=== PATIENT | female | born 1980 | race Caucasian/White ===

== ENCOUNTER → 2019-07-22 12:20 | Outpatient (CLI) | payer BC, SELFPAY | PROVIDERS: PCP Internal Medicine; Visit Provider Physician Assistant | DX: R30.0 Dysuria (principal) | CPT/HCPCS: 87077; 87086 ==

== ENCOUNTER → 2019-08-16 15:38 | Outpatient (CLI) | payer BC, SELFPAY ==
[2019-08-16 16:28] LABS: Add Manual Diff / Slide Review NO; Basophils Absolute Auto 0 /uL (0-100); Basophils Percent Auto 0.4 % (0-2); Eosinophils Absolute Auto 100 /uL (0-450); Eosinophils Percent Auto 0.6 % (2-4); Hematocrit 38.3 % (36-46); Hemoglobin 13.1 g/dL (12.0-16.0); Lymphocytes Absolute Auto 2200 /uL (1100-4500); Lymphocytes Percent Auto 20.7 % (25-40); Mean Corpuscular HGB Conc 34.2 % (30-36); Mean Corpuscular Hemoglobin 30.5 PG (26-34); Mean Corpuscular Volume 89.2 fL (80-100); Monocytes Absolute Auto 600 /uL (0-900); Monocytes Percent Auto 6.2 % (3-14); Neutrophils Absolute Auto 7600 /uL (1500-7000); Neutrophils Percent Auto 72.1 % (50-75); Platelet Count 361 X10^3/uL (150-400); Red Blood Cell Count 4.29 X10^6/uL (4.0-5.2); Red Cell Distribution Width 12.7 % (11.6-14.8); White Blood Cell Count 10.5 X10^3/uL (4.5-11.0)
[2019-08-16 16:36] LABS: Appearance Urine UA CLEAR; Bilirubin Urine UA NEGATIVE (NEGATIVE); Color Urine UA YELLOW; Glucose Urine UA NEGATIVE (Negative); Ketones Urine UA TRACE (NEGATIVE); Leukocyte Esterase Urine UA NEGATIVE (NEGATIVE); Nitrite Urine UA NEGATIVE (Negative); Occult Blood Urine UA 2+ (Negative); Protein Urine UA TRACE (Negative); Specific Gravity Urine UA 1.025 (1.000-1.035); Urobilinogen Urine UA 0.2 E.U./dL (0.2)
[2019-08-16 16:43] LABS: Amorphous Sediment Urine 1+; Bacteria Urine Moderate (10-30); Mucus Urine 2+ (Negative); RBC Urine 5-10/HPF (0-5/HPF); Squamous Epithelial Cell Urine 10-30 /HPF (0-5/HPF); WBC Urine 10-30/HPF (0-5/HPF)
[2019-08-16 17:37] LABS: Hepatitis B Surface Antigen NEGATIVE s/c (NEGATIVE); Rubella Antibody IgG 10.4 IU/mL (>15)
[2019-08-16 17:54] LABS: HIV 1 & 2 Ab/Ag 4th Gen Combo NEGATIVE (NEGATIVE); Hep C Virus Ab w/Reflex Quant NEGATIVE s/c (NEGATIVE)
[2019-08-16 18:15] LABS: Specimen Label KIT TEST
[2019-08-18 19:45] LABS: RPR Screen Nonreactive (Nonreactive)
== END ==
PROVIDERS: PCP Internal Medicine; Visit Provider Obstetrics & Gynecology
DX: O09.521 Supervision of elderly multigravida, first trimester (principal); Z34.81 Encounter for supervision of other normal pregnancy, first trimester
CPT/HCPCS: 36415; 80055; 81003; 81015; 86787; 86803; 86850; 86900; 86901; 87086; 87389

== ENCOUNTER → 2019-09-28 12:20 | Outpatient (CLI) | payer BC, SELFPAY ==
[2019-10-04 13:43] LABS: AFP, Serum 22.8 ng/mL; Calc Gestational Age 16.1; Est Date Determined by ULTRASOUND; Maternal Weight 135 lbs; Number of Fetuses 1; Prev Pregnancies Down Syndrome NO
== END ==
PROVIDERS: PCP Internal Medicine; Visit Provider Obstetrics & Gynecology
DX: Z34.92 Encounter for supervision of normal pregnancy, unspecified, second trimester (principal); Z3A.16 16 weeks gestation of pregnancy
CPT/HCPCS: 36415; 82105

== ENCOUNTER → 2019-10-29 14:26 | Outpatient (CLI) | payer BC, SELFPAY ==
--- NOTE | 2019-10-29 14:28 | DI.US.S_ITS ---
PROCEDURE: US OB >= 14 WEEKS FETUS INDICATIONS: 20 week anatomy scan OUTSIDE/PRIOR DATING DATA: Last menstrual period (LMP): 06/07/19. LMP-based estimated date of delivery (BRANDY): 03/13/20. First dating scan (date and location): 08/04/19. Estimated date of delivery (BRANDY) from first dating scan: 03/14/20. TECHNIQUE: Real-time scanning was performed of the fetus, with image documentation and biometric measurements. Endovaginal scanning: No COMPARISON: [facility], LILY, US OB < 14 WEEKS, 08/31/2019, 12:06. FINDINGS: General: A single living intrauterine gestation is present. Presentation: Breech Placenta: Placental position is posterior, without previa. Amniotic fluid index: 14.5 cm, normal range is 5-24 cm. heart rate: 149 beats per minute. Maternal cervical canal: 4.0 cm long. Normal lower limit is 2.5 cm. biometrics: Biparietal diameter: 20 weeks 4 days Head circumference: 20 weeks 4 days Abdominal circumference: 20 weeks 6 days Femur length: 20 weeks 2 days Estimated gestational age from initial scan: 20 weeks 3 days Composite gestational age from present scan: 20 weeks 4 days Estimated weight and percentile: 365 g; 55th percentile Measurement variability for biometric dating: +/- 7 days from 14 weeks to 15 weeks 6 days gestation, +/- 10 days from 16 weeks to 21 weeks 6 days gestation, +/- 2 weeks from 22 weeks to 27 weeks 6 days gestation, +/- 3 weeks for 28 weeks gestation or later. weight reference: 4500 g or EFW >90/95% is considered macrosomia or large for gestational age. EFW <10% is small for gestational age. EFW 5% or less is considered intra-uterine growth restriction. Anatomic survey: Neuro: Ventricles are non-dilated at less than 10 mm. Cisterna magna is normal at 3-11 mm. Cerebellum is normal in size and morphology. Nuchal skin fold: Normal at less than 6 mm between 14-21 weeks gestational age. Face: Nose and lips, facial profile are normal. Spine: No evidence for spina bifida. Heart: 4-chambered heart is present, with normal ventricular outflow tracts. Diaphragm: Diaphragm is intact. Stomach: Left-sided stomach is present. Kidneys: No hydronephrosis. Normal is less than 5 mm in 2nd trimester, less than 7 mm in 3rd trimester. Cord: 3-vessel cord has orthotopic insertion. Bladder: Normal in size. Extremities: All 4 extremities identified. IMPRESSION: 1. Single living IUP redemonstrated and interval growth is normal. 2. Normal anatomic survey. Dictated by: Jarred Parisi [facility] Interpreted: Yolis Campbell MD on 10/29/2019 at 15:25 Approved by: Yolis Campbell M.D. on 10/29/2019 at 17:35
== END ==
PROVIDERS: PCP Internal Medicine; Visit Provider Internal Medicine
DX: Z34.82 Encounter for supervision of other normal pregnancy, second trimester (principal); Z3A.20 20 weeks gestation of pregnancy
CPT/HCPCS: 76811

== ENCOUNTER → 2019-12-02 08:39 | Outpatient (CLI) | payer BC, SELFPAY ==
[2019-12-02 12:03] LABS: Hematocrit 35.6 % (36-46); Hemoglobin 12.1 g/dL (12.0-16.0)
[2019-12-02 12:35] LABS: GTT (PREG) 1 Hour PP 50gm Dose 71 mg/dL (76-139)
== END ==
PROVIDERS: PCP Internal Medicine; Referring Provider Specialist; Visit Provider Specialist
DX: Z34.82 Encounter for supervision of other normal pregnancy, second trimester (principal); Z3A.25 25 weeks gestation of pregnancy
CPT/HCPCS: 36415; 82950; 85014; 85018

== ENCOUNTER 2020-01-19 14:39 | Observation (INO) | payer BC, SELFPAY ==
--- NOTE | 2020-01-19 14:46 | DI.US.S_ITS ---
PROCEDURE: US OB LIMITED INDICATIONS: LEFT ABDOMINAL PAIN AT 32 WEEKS GESTATION OUTSIDE/PRIOR DATING DATA: Last menstrual period (LMP): 06/07/19 LMP-based estimated date of delivery (BRANDY): 03/13/20. First dating scan (date and location): 08/04/19. Estimated date of delivery (BRANDY) from first dating scan: 03/14/20. TECHNIQUE: Real-time scanning was performed of the fetus, with image documentation. Endovaginal scanning: Not performed COMPARISON: None. FINDINGS: A single living intrauterine gestation is present. Presentation: Vertex Placenta: Placental position is fundal, without previa. heart rate: 155 beats per minute. Maternal cervical canal: 6.3 cm long. Normal lower limit is 2.5 cm. Bilateral ovaries are visualized and are within normal limits. Examination of bilateral kidneys shows the right kidney measures 11.9 cm in length and left kidney measures 12.9 cm in length. Moderate left-sided hydronephrosis is seen. No gross obstructing renal calculus is seen. No right sided hydronephrosis. IMPRESSION: 1. Moderate left-sided hydronephrosis. No right hydronephrosis. 2. Single live intrauterine with fetus in vertex presentation. heart rate is 155 beats per minute. Normal appearing cervix. Dictated by: Prudencio Jackson M.D. on 01/19/2020 at 15:51 Approved by: Prudencio Jackson M.D. on 01/19/2020 at 15:54
[2020-01-19 14:58] LABS: Appearance Urine UA SL CLOUDY; Bilirubin Urine UA NEGATIVE (NEGATIVE); Color Urine UA YELLOW; Glucose Urine UA NEGATIVE (Negative); Ketones Urine UA TRACE (NEGATIVE); Leukocyte Esterase Urine UA TRACE (NEGATIVE); Nitrite Urine UA NEGATIVE (Negative); Occult Blood Urine UA 3+ (Negative); Protein Urine UA TRACE (Negative); Specific Gravity Urine UA 1.025 (1.000-1.035); Urobilinogen Urine UA 0.2 E.U./dL (0.2)
[2020-01-19 15:02] LABS: Add Manual Diff / Slide Review NO; Basophils Absolute Auto 100 /uL (0-100); Basophils Percent Auto 0.3 % (0-2); Eosinophils Absolute Auto 0 /uL (0-450); Eosinophils Percent Auto 0.1 % (2-4); Hematocrit 36.3 % (36-46); Hemoglobin 12.3 g/dL (12.0-16.0); Lymphocytes Absolute Auto 1300 /uL (1100-4500); Lymphocytes Percent Auto 7.7 % (25-40); Mean Corpuscular Hemoglobin 30.1 PG (26-34); Mean Corpuscular Volume 88.6 fL (80-100); Monocytes Absolute Auto 700 /uL (0-900); Monocytes Percent Auto 3.9 % (3-14); Neutrophils Absolute Auto 15400 /uL (1500-7000); Platelet Count 250 X10^3/uL (150-400); Red Cell Distribution Width 12.7 % (11.6-14.8); White Blood Cell Count 17.5 X10^3/uL (4.5-11.0)
[2020-01-19 15:09] LABS: Calcium Oxalate Crystals Urine Occasional; RBC Urine 30-100/HPF (0-5/HPF); Squamous Epithelial Cell Urine 1-5 /HPF (0-5/HPF); WBC Urine 10-30/HPF (0-5/HPF); pH Urine UA 5.5 (4.5-8.0)
[2020-01-19 15:10] LABS: Bacteria Urine Many (>30); Culture Indicated Urine Specimen Cultured; Mucus Urine 1+ (Negative)
[2020-01-19 15:13] LABS: Alanine Aminotransferase 9 IU/L (<35); Albumin 3.8 g/dL (3.5-5.0); Albumin Globulin Ratio 1.1 (1.0-2.8); Alkaline Phosphatase 112 U/L (38-126); Aspartate Aminotransferase 23 IU/L (14-36); BUN Creatinine Ratio 18.2 (6-22); Bilirubin Total 0.3 mg/dL (0.2-1.3); Bilirubin Unconjugated 0.3 mg/dL (0.0-1.1); Blood Urea Nitrogen 10 mg/dL (7-17); Calcium 9.1 mg/dL (8.4-10.2); Carbon Dioxide 24 mmol/L (22-32); Chloride 106 mmol/L (98-107); Estimated Glomerular Filt Rate > 60.0 mL/min (>60); Globulin 3.5 g/dL (1.7-4.1); Glucose 104 mg/dL (70-100); HEMOLYSIS < 15 (0-50); Potassium 3.6 mmol/L (3.4-5.1); Sodium 138 mmol/L (137-145); Total Protein 7.3 g/dL (6.3-8.2)
[2020-01-19] MEDS: CEFTRIAXONE 1 GM/50 ML FROZ.PIGGY IV (15:42)
[2020-01-19] MEDS: MORPHINE 2 MG/ML INJ IV (15:42)
[2020-01-19] MEDS: LACTATED RINGERS 1,000 ML 1000 ML IV (15:42)
[2020-01-19] MEDS: ONDANSETRON 4 MG/2 ML INJ IV (15:42)
[2020-01-19 16:06] LABS: Procalcitonin < 0.05 ng/mL (<0.5)
[2020-01-19] MEDS: ACETAMINOPHEN 325 MG TABLET 650 MG PO (16:26)
--- NOTE | 2020-01-19 17:20 | PM.OBTRLD ---
Visit Information Visit Information Date of evaluation: 01/19/20 Primary OB Provider: Pita Martin Reason for Evaluation: Yes other Comments/Additional reasons for admission: Severe left flank pain and nausea Vital Signs Vital Signs: Blood pressure 132/71, pulse of 85, temperature 98.1? 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 She started to have left-sided pain and then when she reached the cell phone lot started emesis. The pain was crampy but only on her left side and back. She denies any vaginal bleeding. ROS: Yes All systems reviewed with the patient and are negative except as otherwise documented Exam Narrative Exam Narrative: Patient was appearing quite uncomfortable. No pain in her abdomen. Minimal CVA tenderness. Objective Imaging US - abdomen: My impression: No evidence of abruption, left hydronephrosis Labs Result Diagrams: 01/19/20 14:54 01/19/20 14:54 Labs: Laboratory Results - last 24 hr 01/19/20 01/19/20 01/19/20 14:50 14:54 14:54 WBC 17.5 H RBC 4.10 Hgb 12.3 Hct 36.3 MCV 88.6 MCH 30.1 MCHC 34.0 RDW 12.7 Plt Count 250 Neut % (Auto) 88.0 H Lymph % (Auto) 7.7 L [place] % (Auto) 3.9 Eos % (Auto) 0.1 L Baso % (Auto) 0.3 Neut # (Auto) 15917 H Lymph # (Auto) 1300 [place] # (Auto) 700 Eos # (Auto) 0 Baso # (Auto) 100 Sodium 138 Potassium 3.6 Chloride 106 Carbon Dioxide 24 BUN 10 Creatinine 0.55 Estimated GFR > 60.0 BUN/Creatinine Ratio 18.2 Glucose 104 H Calcium 9.1 Total Bilirubin 0.3 Conjugated Bilirubin 0.0 Unconjugated Bilirubin 0.3 AST 23 ALT 9 Alkaline Phosphatase 112 Total Protein 7.3 Albumin 3.8 Globulin 3.5 Albumin/Globulin Ratio 1.1 Procalcitonin Urine Color Yellow Urine Appearance Sl cloudy Urine pH 5.5 Ur Specific Cross 1.025 Urine Protein Trace H Urine Glucose (UA) Negative Urine Ketones Trace H Urine Occult Blood 3+ H Urine Nitrate Negative Urine Bilirubin Negative Urine Urobilinogen 0.2 Ur Leukocyte Esterase Trace H Urine RBC 30-100/hpf H Urine WBC 10-30/hpf H Ur Squamous Epith Cells 1-5 /hpf D Calcium Oxalate Crystal Occasional H Urine Bacteria Many (>30) H Urine Mucus 1+ H Ur Culture Indicated? Specimen cultured 01/19/20 14:54 WBC RBC Hgb Hct MCV MCH MCHC RDW Plt Count Neut % (Auto) Lymph % (Auto) [place] % (Auto) Eos % (Auto) Baso % (Auto) Neut # (Auto) Lymph # (Auto) [place] # (Auto) Eos # (Auto) Baso # (Auto) Sodium Potassium Chloride Carbon Dioxide BUN Creatinine Estimated GFR BUN/Creatinine Ratio Glucose Calcium Total Bilirubin Conjugated Bilirubin Unconjugated Bilirubin AST ALT Alkaline Phosphatase Total Protein Albumin Globulin Albumin/Globulin Ratio Procalcitonin < 0.05 Urine Color Urine Appearance Urine pH Ur Specific Cross Urine Protein Urine Glucose (UA) Urine Ketones Urine Occult Blood Urine Nitrate Urine Bilirubin Urine Urobilinogen Ur Leukocyte Esterase Urine RBC Urine WBC Ur Squamous Epith Cells Calcium Oxalate Crystal Urine Bacteria Urine Mucus Ur Culture Indicated? Evaluation Evaluation Baseline heart rate: 130 monitor accelerations: Present monitor decelerations: Absent Contraction Frequency (minutes): 0 Category of Tracing: I Laboratory results: Laboratory Tests 01/19/20 01/19/20 01/19/20 14:50 14:54 14:54 WBC 17.5 H RBC 4.10 Hgb 12.3 Hct 36.3 MCV 88.6 MCH 30.1 MCHC 34.0 RDW 12.7 Plt Count 250 Neut % (Auto) 88.0 H Lymph % (Auto) 7.7 L [place] % (Auto) 3.9 Eos % (Auto) 0.1 L Baso % (Auto) 0.3 Neut # (Auto) 87745 H Lymph # (Auto) 1300 [place] # (Auto) 700 Eos # (Auto) 0 Baso # (Auto) 100 Sodium 138 Potassium 3.6 Chloride 106 Carbon Dioxide 24 BUN 10 Creatinine 0.55 Estimated GFR > 60.0 BUN/Creatinine Ratio 18.2 Glucose 104 H Calcium 9.1 Total Bilirubin 0.3 Conjugated Bilirubin 0.0 Unconjugated Bilirubin 0.3 AST 23 ALT 9 Alkaline Phosphatase 112 Total Protein 7.3 Albumin 3.8 Globulin 3.5 Albumin/Globulin Ratio 1.1 Procalcitonin Urine Color Yellow Urine Appearance Sl cloudy Urine pH 5.5 Ur Specific Cross 1.025 Urine Protein Trace H Urine Glucose (UA) Negative Urine Ketones Trace H Urine Occult Blood 3+ H Urine Nitrate Negative Urine Bilirubin Negative Urine Urobilinogen 0.2 Ur Leukocyte Esterase Trace H Urine RBC 30-100/hpf H Urine WBC 10-30/hpf H Ur Squamous Epith Cells 1-5 /hpf D Calcium Oxalate Crystal Occasional H Urine Bacteria Many (>30) H Urine Mucus 1+ H Ur Culture Indicated? Specimen cultured 01/19/20 14:54 WBC RBC Hgb Hct MCV MCH MCHC RDW Plt Count Neut % (Auto) Lymph % (Auto) [place] % (Auto) Eos % (Auto) Baso % (Auto) Neut # (Auto) Lymph # (Auto) [place] # (Auto) Eos # (Auto) Baso # (Auto) Sodium Potassium Chloride Carbon Dioxide BUN Creatinine Estimated GFR BUN/Creatinine Ratio Glucose Calcium Total Bilirubin Conjugated Bilirubin Unconjugated Bilirubin AST ALT Alkaline Phosphatase Total Protein Albumin Globulin Albumin/Globulin Ratio Procalcitonin < 0.05 Urine Color Urine Appearance Urine pH Ur Specific Cross Urine Protein Urine Glucose (UA) Urine Ketones Urine Occult Blood Urine Nitrate Urine Bilirubin Urine Urobilinogen Ur Leukocyte Esterase Urine RBC Urine WBC Ur Squamous Epith Cells Calcium Oxalate Crystal Urine Bacteria Urine Mucus Ur Culture Indicated? Diagnosis, Plan/Disposition Final Diagnosis (1) Hydronephrosis determined by ultrasound: Current Visit: Yes Status: Acute (2) Flank pain in patient: Current Visit: Yes Status: Acute Plan/Disposition Plan: Patient had significant improvement in her pain with IV fluids, significant improvement of her nausea. Patient has remained afebrile. Unclear if the patient's symptoms were from a kidney stone, hydronephrosis, pyelonephritis. Since the patient is afebrile and her pain and nausea has resolved will discharge the patient home and treat with antibiotics. She received 1 g of ceftriaxone IV, she will be started on Bactrim until culture returns. Patient is to call immediately if she has a fever, or the pain returns. OB Disposition: home
== END 2020-01-19 17:33 | disposition home or self-care (01) ==
PROVIDERS: Admitting Provider Specialist; PCP Internal Medicine; Referring Provider Specialist; Visit Provider Specialist
DX: O99.89 Other specified diseases and conditions complicating pregnancy, childbirth and the puerperium (principal); N13.30 Unspecified hydronephrosis; O09.523 Supervision of elderly multigravida, third trimester; Z3A.32 32 weeks gestation of pregnancy
CPT/HCPCS: 36415; 59025; 59050; 76815; 80053; 80076; 81001; 84145; 85025; 87077; 87086; 87147; 96360; G0378; G0379; J2270; J2405

== ENCOUNTER → 2020-02-14 12:00 | Outpatient (CLI) | payer BC, SELFPAY ==
[2020-02-15 09:41] LABS: Strep Grp B PCR POS for Grp B Strep
== END ==
PROVIDERS: PCP Internal Medicine; Visit Provider Specialist
DX: Z34.03 Encounter for supervision of normal first pregnancy, third trimester (principal)
CPT/HCPCS: 87653

== ENCOUNTER 2020-03-08 04:39 | Inpatient (IN) | payer BC, SELFPAY ==
[2020-03-08 06:41] LABS: Add Manual Diff / Slide Review NO; Basophils Absolute Auto 100 /uL (0-100); Basophils Percent Auto 0.5 % (0-2); Eosinophils Absolute Auto 100 /uL (0-450); Eosinophils Percent Auto 0.4 % (2-4); Hematocrit 37.7 % (36-46); Hemoglobin 12.8 g/dL (12.0-16.0); Lymphocytes Absolute Auto 2600 /uL (1100-4500); Lymphocytes Percent Auto 15.8 % (25-40); Mean Corpuscular HGB Conc 33.8 % (30-36); Mean Corpuscular Volume 88.7 fL (80-100); Monocytes Absolute Auto 1200 /uL (0-900); Neutrophils Absolute Auto 12600 /uL (1500-7000); Neutrophils Percent Auto 76.3 % (50-75); Platelet Count 226 X10^3/uL (150-400); Red Blood Cell Count 4.25 X10^6/uL (4.0-5.2); Red Cell Distribution Width 13.2 % (11.6-14.8); White Blood Cell Count 16.6 X10^3/uL (4.5-11.0)
[2020-03-08] MEDS: PENICILLIN G POTASSIUM 5,000,000 UNIT in DEXTROSE 5% IN WATER 250 ML IV (06:46)
[2020-03-08] MEDS: LACTATED RINGERS 1,000 ML 100 ML IV (06:46)
--- NOTE | 2020-03-08 07:50 | PM.AN.REGBLK ---
Regional Block Pre-procedure Procedure: Continuous Lumbar Epidural for L&D Attending OB provider: Pita Martin PMH/ROS narrative: term labor, no complications except mildly elevated BP recently, no Rx. Hx: No personal or family history of anesthesia problems. ASA Class: II Labs: Hct 37.7 % (36-46) 03/08/20 06:35 Plt Count 226 X10^3/uL (150-400) 03/08/20 06:35 Medications: Current Medications Generic Name Dose Route Start Last Admin Trade Name Freq PRN Reason Stop Dose Admin Calcium Carbonate 1,000 mg 03/08/20 06:11 Tums PO Q2HR PRN Dyspepsia Fentanyl 100 mcg 03/08/20 06:11 Sublimaze IV Q1H PRN Pain, Severe (7-10) Penicillin G Potassium 3,000,000 unit in 50 mls @ 100 mls/hr 03/08/20 10:00 Penicillin G Potassium IV Q4H FISH Lactated Ringer's 1,000 mls @ 100 mls/hr 03/08/20 06:15 03/08/20 06:46 Lactated Ringers IV 100 mls/hr CONT FISH Administration Naloxone HCl 0.2 mg 03/08/20 06:11 Narcan IV Q2MIN PRN Opiate Reversal Ondansetron HCl 4 mg 03/08/20 06:11 Zofran IV Q4HR PRN Nausea And Vomiting Allergies: Allergies Allergy/AdvReac Type Severity Reaction Status Date / Time No Known Drug Allergies Allergy Verified 02/14/20 12:04 Procedure Insertion date: 03/08/20 Insertion time: 07:12 Prep/Local: betadine x3 Interspace: L3-4 Patient position: sitting Needle: 18 gauge Hustead (CSE: 27g Pencan through Hustead, clear CSF, 1mL 0.25% bupiv spinal dose) Loss of resistance with: saline LEEANNE at (cm): 4 Catheter placed at SKIN (cm): 9 Catheter in SPACE (cm): 5 Insertion: No CSF, No Blood, No Paresthesia with insertion, No Paresthesia with injection and No Test dose reaction Initial Medications TEST DOSE time: 07:12 TEST DOSE: 1.5% lidocaine with epinephrine 1:200k (mL): 3 BOLUS DOSE time: 07:22 BOLUS DOSE (mL): 3 BOLUS DOSE med: 0.125% bupivacaine with fentanyl 10 mcg/mL (no fentanyl) Infusion INFUSION: 0.125% bupivacaine Initial rate (mL/hr): 7 Subsequent interventions: 827: 5mL 0.25% bupiv with 50mcg fentanyl, rate to 10. Approx 4cm per RN. Post-procedure Anesthesia time START: 07:02 Anesthesia time END: 11:44 Post-procedure Anesthesia Assessment: Yes CV function: HR/BP stable, Yes Resp function: RR/sat/airway adequate, Yes Post-op hydration adequate, Yes Pain control adequate, Yes Nausea & vomiting absent, Yes Mental status appropriate and No Anesthesia complications
--- NOTE | 2020-03-08 08:26 | PM.OBHP.1 ---
OB HPI Date/Time Date of admission: 03/08/20 Date Patient Seen: 03/08/20 Time Patient Seen: 06:45 History of Present Condition Chief complaint: Evaluation of Labor/Abd Pain, 32 weeks : 5 Para: 3 Estimated Date of Delivery: 03/13/20 Estimated Gestational Age (weeks): 39 Narrative: Guerline Mcwilliams is a 40 year old female admitted in active labor History of Present care: good care, initiated at week # (8), number of visits (11) and pounds weight gain (32) Dating criteria: LMP confirmed by 1st trimester US Ultrasounds: normal mid trimester US Obstetrical complications: none Medical complications: none Preadmission Labs Blood type: O (+) positive -: Antibody screen: negative, GBS status: positive, HBsAG: negative, HIV: negative and RPR/VDLR: negative -: Chlamydia screen: not detected and Gonorrhea screen: not detected -: Rubella: not immune and Varicella: immune HCAB: negative Cell-free DNA: Normal male with normal AFP 1 hr GTT: 71 Prior (ies) History: 07/14/2014 37.5 weeks 6 lb 14 oz male epidural vaginal deliver 02/10/2017 39 week 7 lb 11 oz male epidural vaginal delivery 09/27/2018 38 weeks 6 lb 11 oz male epidural vaginal delivery Evaluation Evaluation Baseline heart rate: 140 Variability: Moderate (11-25) monitor accelerations: Present monitor decelerations: Absent Contraction Frequency (minutes): 5 Uterine Contraction Intensity: Strong/Firm Category of Tracing: I Cervical dilation (cm): 2 Cervical effacement (%): 80 station: -3 Laboratory results: Laboratory Tests 03/08/20 03/08/20 06:35 06:35 WBC 16.6 H RBC 4.25 Hgb 12.8 Hct 37.7 MCV 88.7 MCH 30.0 MCHC 33.8 RDW 13.2 Plt Count 226 Neut % (Auto) 76.3 H Lymph % (Auto) 15.8 L [place] % (Auto) 7.0 Eos % (Auto) 0.4 L Baso % (Auto) 0.5 Neut # (Auto) 26833 H Lymph # (Auto) 2600 [place] # (Auto) 1200 H Eos # (Auto) 100 Baso # (Auto) 100 Blood Type O Positive Antibody Screen Negative Non-invasive Membranes Rupture Test: positive (Maybe false from blood) PFSH Social History marital status: number of children: 3 household members: spouse and children lives independently: No caregiver/support person: No pets and animals: No education level: college occupational status: employed current occupational exposures/hazards: No leisure activities: exercise Smoking Status: Never smoker Meds Home Medications and Allergies Home Medications Medication Instructions Recorded Confirmed Type docosahexaenoic acid 200 mg capsule mg PO 07/22/19 02/28/20 History Allergies Allergy/AdvReac Type Severity Reaction Status Date / Time No Known Drug Allergies Allergy Verified 02/14/20 12:04 Review of Systems Review of Systems Narrative: Patient denies headaches, scotomata, epigastric pain. Good movement. She does not believe she broke her bag of water. ROS: Yes All systems reviewed with the patient and are negative except as otherwise documented Exam Vital Signs (past 8 hours): Blood pressure 142/82, pulse 78, temperature 36.3? Narrative Exam Narrative: HEENT exam within normal limits. Lungs are clear to auscultation percussion. Heart is regular rate and rhythm no S3-S4 or murmurs. Abdomen is gravid and soft. Extremities without edema and nontender. Normal DTRs. Objective Labs Result Diagrams: 03/08/20 06:35 Labs: Laboratory Results - last 24 hr 03/08/20 03/08/20 06:35 06:35 WBC 16.6 H RBC 4.25 Hgb 12.8 Hct 37.7 MCV 88.7 MCH 30.0 MCHC 33.8 RDW 13.2 Plt Count 226 Neut % (Auto) 76.3 H Lymph % (Auto) 15.8 L [place] % (Auto) 7.0 Eos % (Auto) 0.4 L Baso % (Auto) 0.5 Neut # (Auto) 40151 H Lymph # (Auto) 2600 [place] # (Auto) 1200 H Eos # (Auto) 100 Baso # (Auto) 100 Blood Type O Positive Antibody Screen Negative Assessment and Plan Assessment and Plan Assessment and Plan narrative: 39 week gestation in active labor with positive group B strep culture. Patient will receive IV penicillin. She is requesting epidural for pain control.
[2020-03-08] MEDS: PENICILLIN G POTASSIUM 3,000,000 UNIT/50 ML FROZ.PIGGY 100 UNIT IV (09:59)
[2020-03-08 10:36] LABS: COVID19 -Nasal RAPID Negative (Negative)
[2020-03-08] MEDS: OXYTOCIN 10 UNIT/ML VIAL 20 UNIT (11:18)
--- NOTE | 2020-03-08 11:43 | PM.OBPRVD ---
Labor & Delivery Delivery date: 03/08/20 Intrapartal events: None Induction method: none Delivery monitor: external FHT and external uterine Route of delivery: L&D Laceration Description: Perineal - 1st Degree Delivery repair: chromic (3 0) Estimated blood loss (mL): 100 Anesthesia type: Epidural Narrative: Patient arrived on Labor and delivery in active labor. She received IV penicillin for positive group B strep culture. She received an epidural catheter for pain control. heart tones category 1 to category 2 throughout labor. She had a very fast 2nd stage of labor. The patient had a spontaneous vaginal delivery. The viable male infant was placed on maternal abdomen. After the cord stopped pulsating the cord was clamped, cut, and cord bloods obtained. The placenta delivered spontaneously, intact, with 3 vessels. Patient was given IM Pitocin. There were no cervical or vaginal tears. A first-degree perineal tear was repaired with 3 0 chromic suture in the usual 2 layer fashion. Both mother doing well. Baby 1: gender: Male Presentation: vertex position: Left Occiput Transverse Placenta delivery description: Spontaneous cord vessel description: 3 Vessels score (1 min): 8 score (5 min): 9 Plan for aftercare: Routine care
[2020-03-08 17:11] VITALS: BP 132/74
[2020-03-08] MEDS: IBUPROFEN 600 MG TABLET PO (23:35)
[2020-03-09 06:17] LABS: Hemoglobin 12.6 g/dL (12.0-16.0)
--- NOTE | 2020-03-09 07:39 | P.DS_ITS ---
Discharge Providers Provider Date of admission: 03/08/20 04:39 Discharge Date: 03/09/20 Primary care physician: BOWEN Cali Consults: 03/08/20 06:11 Consult to Anesthesiology Urgent Comment: Consulting Provider: Anesthesiologist Reason for consultation: Epidural Has provider been notified: No 03/09/20 11:40 Consult to Stage Director Routine Comment: Discharge provider: Pita Martin MD Summary Hospital Course Date Patient Seen: 03/09/20 Time Patient Seen: 07:40 Procedures: Epidural catheter, spontaneous vaginal delivery, repair of first- degree perineal tear Hospital Course: Patient arrived on Labor and delivery in active labor. She received an epidural catheter for pain control. She received IV penicillin for positive group B strep culture. She had a spontaneous vaginal delivery of a viable male . She had repair of a first-degree perineal laceration. She is urinating and ambulating well. Minimal pain. She is breast-feeding without difficulty. She had some mild headaches and slightly increased blood pressure but no other signs or symptoms of preeclampsia. Peripartum Data Delivery Method: Natural Vaginal Laceration description: Perineal - 1st Degree Procedures: IV penicillin for positive group B strep culture, epidural catheter, spontaneous vaginal delivery, repair of first-degree laceration complications: none [place] 1: Gender: Male Disposition of : home Discharge Diagnosis (1) Vaginal delivery: Status: Acute Time Spent with Patient Time attestation: Total time spent providing and/or coordinating discharge services: Objective Labs Result Diagrams: 03/09/20 06:10 Labs: Laboratory Results - last 24 hr 03/08/20 03/09/20 09:30 06:10 Hgb 12.6 Hct 37.0 COVID-19 PCR Negative Exam Vital Signs (past 8 hours): Blood pressure 143/89, pulse 71, temperature 98.4? Narrative Exam Narrative: Abdomen is soft, nontender. Uterus is firm, at U, nontender. Repair is intact. Mild lochia. Extremities without edema and nontender. Patient is Rh positive. Rubella is nonimmune so she will receive the rubella vaccine prior to discharge. She received the Tdap in the 3rd trimester Discharge Plan Discharge Plan Patient Disposition: Home Discharge orders & Medications Prescriptions: Continued DHA 200 mg capsule PO RF: 0 Follow up/Referrals: Pita Martin MD [Physician] - 1 Month Thao Hernandez ARNP [Primary Care Provider] - Diet/Activity/Treatments Diet: Regular Activity: Nothing in vagina for 4 weeks Skin/Wound/Dressing Care Report to your healthcare provider any signs of infection, such as:: chills, fever and increased pain Discharge Data Primary Care Provider: Thao Hernandez
[2020-03-09] MEDS: DOCUSATE 100 MG CAPSULE PO (09:17)
[2020-03-09 11:46] VITALS: BP 133/84; PULSE 84; RESP 16; TEMP 36.8
== END 2020-03-09 13:01 | disposition home or self-care (01) | DRG 807 ==
PROVIDERS: Admitting Provider Specialist; PCP Internal Medicine; Referring Provider Specialist; Visit Provider Specialist
DX: O99.824 Streptococcus B carrier state complicating childbirth (principal); Z37.0 Single live birth; Z3A.39 39 weeks gestation of pregnancy; O70.0 First degree perineal laceration during delivery; Z11.59 Encounter for screening for other viral diseases
CPT/HCPCS: 01967; 36415; 59050; 59400; 85014; 85018; 85025; 86850; 86900; 86901; 87635; G0379; J2540; J2590

== ENCOUNTER → 2020-07-20 13:43 | Outpatient (CLI) | payer BC, SELFPAY ==
[2020-07-20 14:24] LABS: Appearance Urine UA CLEAR; Bilirubin Urine UA NEGATIVE (NEGATIVE); Color Urine UA YELLOW; Glucose Urine UA NEGATIVE (Negative); Ketones Urine UA NEGATIVE (NEGATIVE); Leukocyte Esterase Urine UA TRACE (NEGATIVE); Nitrite Urine UA NEGATIVE (Negative); Occult Blood Urine UA 1+ (Negative); Protein Urine UA NEGATIVE (Negative); Urobilinogen Urine UA 0.2 E.U./dL (0.2)
[2020-07-20 14:35] LABS: pH Urine UA 6.5 (4.5-8.0)
[2020-07-20 14:36] LABS: Amorphous Sediment Urine 1+; RBC Urine 0-1/HPF (0-5/HPF); Squamous Epithelial Cell Urine 1-5 /HPF (0-5/HPF); WBC Urine 10-30/HPF (0-5/HPF)
[2020-07-20 14:37] LABS: Bacteria Urine Few (2-10); Culture Indicated Urine Specimen Cultured; Mucus Urine 1+ (Negative)
== END ==
PROVIDERS: PCP Internal Medicine; Referring Provider Specialist; Visit Provider Specialist
DX: R39.9 Unspecified symptoms and signs involving the genitourinary system (principal)
CPT/HCPCS: 81001; 87077; 87086; 87147

== ENCOUNTER → 2021-03-17 17:30 | Outpatient (CLI) | payer BC, SELFPAY | PROVIDERS: PCP Internal Medicine; Visit Provider Physician Assistant | DX: R35.0 Frequency of micturition (principal); R39.15 Urgency of urination | CPT/HCPCS: 87077; 87086; 87186 ==

== ENCOUNTER → 2021-07-10 11:04 | Outpatient (CLI) | payer BC, SELFPAY ==
--- NOTE | 2021-07-10 | DI.US.S_ITS ---
PROCEDURE: US RENAL COMPLETE INDICATIONS: ASYMPTOMATIC MICROSCOPIC HEMATURIA TECHNIQUE: Real-time scanning was performed of the kidneys and bladder, with image documentation. COMPARISON: None. FINDINGS: Kidneys: Kidneys are normal in size. Right kidney measures 11.2 cm long; left kidney measures 10.9 cm long. Right renal cortical thickness is 1 cm; left renal cortical thickness is 1.4 cm. Renal cortical echotexture is normal. No hydronephrosis. No suspicious solid mass lesions. Multiple echogenic nonshadowing foci can be seen throughout the renal parenchyma. Note is made of generalized increased vascularity of the right kidney. Bladder: Pre-void bladder volume is 27 mL. Post-void residual is 0 mL. Pre-void images demonstrate no intraluminal masses or stones. On pre-void images, neither of the ureteral jets are noted with color Doppler interrogation. (Of note, ureteral jets may not be detectable in up to 25% of cases due to insufficient differences in specific gravity between ureteral and bladder urine). Miscellaneous: No free pelvic fluid. IMPRESSION: Multiple echogenic foci can be seen throughout the renal parenchyma, which may be related to nonshadowing stones. The right kidney demonstrates increased vascularity. Please consider infection. For further evaluation of the patient's presenting history of hematuria, please consider a dedicated hematuria protocol CT without and with contrast (assuming that there is no contraindication). Dictated by: Madan De La Torre M.D. on 07/10/2021 at 12:09 Approved by: Madan De La Torre M.D. on 07/10/2021 at 12:10
== END ==
PROVIDERS: PCP Internal Medicine; Referring Provider Internal Medicine; Visit Provider Internal Medicine
DX: R31.21 Asymptomatic microscopic hematuria (principal)
CPT/HCPCS: 76770

== ENCOUNTER → 2021-07-13 08:11 | Outpatient (CLI) | payer BC, SELFPAY ==
--- NOTE | 2021-07-13 08:27 | DI.CT.S_ITS ---
PROCEDURE: CT ABDOMEN PELVIS WO/W CON INDICATIONS: Asymptomatic microscopic hematuria TECHNIQUE: Optional 5 mm thick noncontrast images acquired from the diaphragm to the symphysis pubis. After the administration of intravenous contrast, 5 mm thick images acquired from the diaphragm to the symphysis pubis after a 10-minute delay. 2 mm thick coronal and sagittal reformats were then performed of the kidneys and ureters. For radiation dose reduction, the following was used: automated exposure control, adjustment of mA and/or kV according to patient size. COMPARISON: [facility], , RENAL COMPLETE, 07/10/2021, 11:20. FINDINGS: Image quality: Excellent. Lung bases: Lung bases are clear. Heart size is normal. Urinary system: Noncontrast images demonstrate numerous, at least 10, small nonobstructing stones within each kidney with the largest stone measuring up to approximately 2-3 mm. No hydronephrosis or perinephric fat stranding. There is normal bilateral renal enhancement. Renal calyces appear normal in morphology and demonstrate no suspicious filling defects when filled with contrast. There is bilateral indistinct extension of contrast into the papillary regions peripheral to the calices compatible with papillary necrosis. Opacified portions of both ureters demonstrate normal caliber. Bladder wall thickness is normal. No calcified bladder stones. Other solid organs: Evaluation of the liver demonstrates no focal hepatic lesions. The gallbladder appears within normal limits without calcified gallstones. Biliary system is non-dilated. Pancreas enhances normally. No peripancreatic fat stranding or fluid collections. No pancreatic duct dilatation. The spleen is normal in size. No adrenal nodules. Peritoneum and bowel: Bowel loops demonstrate normal wall thickness and caliber. There is colonic diverticulosis without acute diverticulitis. No free fluid or air. Nodes and vessels: No retroperitoneal or mesenteric adenopathy by size criteria. Aorta and inferior vena cava are normal in size. Abdominal wall: No ventral hernias. Pelvis: No pathologic free pelvic fluid. No inguinal hernias or adenopathy. Bones: There is a sclerotic focus within the left iliac bone which is nonspecific but statistically likely represents a bone island. No vertebral body compression fractures. IMPRESSION: 1. Bilateral nephrolithiasis without evidence of obstructive uropathy. 2. 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 Recommend correlation clinically. Dictated by: Tc Browning M.D. on 07/13/2021 at 13:32 Approved by: Tc Browning M.D. on 07/13/2021 at 13:47
== END ==
PROVIDERS: PCP Internal Medicine; Referring Provider Internal Medicine; Visit Provider Internal Medicine
DX: R31.21 Asymptomatic microscopic hematuria (principal); N20.0 Calculus of kidney
CPT/HCPCS: 74178

== ENCOUNTER → 2022-09-30 09:43 | Outpatient (CLI) | payer BC, SELFPAY ==
--- NOTE | 2022-09-30 09:44 | DI.CT.S_ITS ---
PROCEDURE: CT ABDOMEN PELVIS WO/W CON INDICATIONS: Recurring urinary tract infection/microscopic hematuria TECHNIQUE: Optional 5 mm thick noncontrast images acquired from the diaphragm to the symphysis pubis. After the administration of intravenous contrast, 5 mm thick images acquired from the diaphragm to the symphysis pubis after a 10-minute delay. 2 mm thick coronal and sagittal reformats were then performed of the kidneys and ureters. For radiation dose reduction, the following was used: automated exposure control, adjustment of mA and/or kV according to patient size. COMPARISON: [facility], CT, CT ABDOMEN PELVIS WO/W CON, 07/13/2021, 8:18 FINDINGS: Image quality: Excellent. Lung bases: Lung bases are clear. Heart size is normal. Urinary system: Redemonstration of numerous tiny punctate nonobstructing renal stones identified in the bilateral kidneys numbering greater than 10 on each side. These measure approximately 1-2 mm in size. Both kidneys are normal in size, without hydronephrosis or perinephric fat stranding. There is normal bilateral renal enhancement. Renal calyces appear normal in morphology when filled with contrast. Additionally, previously described indistinct extension of contrast into the papular regions peripheral to the calices may represent papillary necrosis. Opacified portions of both ureters demonstrate normal caliber. Bladder wall thickness is normal. No calcified bladder stones. Other solid organs: Liver is normal in size and enhancement. Gallbladder is unremarkable . Biliary system is non dilated. Pancreas enhances normally. Spleen is normal in size and enhancement. No adrenal nodules. Peritoneum and bowel: Bowel loops demonstrate normal wall thickness and caliber. No free fluid or air. Nodes and vessels: No retroperitoneal or mesenteric adenopathy by size criteria. Aorta and inferior vena cava are normal in size. Abdominal wall: There is a fat-containing umbilical hernia without acute inflammation. Pelvis: No pathologic free pelvic fluid. No inguinal hernias or adenopathy. Bones: No suspicious bony lesions. No acute vertebral body compression fractures. Minimal grade 1 anterolisthesis of L5 on S1 secondary to bilateral L5 pars defects. IMPRESSION: 1. Bilateral nephrolithiasis without evidence for obstructive uropathy. 2. 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 Recommend clinical correlation. Dictated by: Tha Carranza M.D. on 09/30/2022 at 14:43 Approved by: Tha Carranza M.D. on 09/30/2022 at 14:54
== END ==
PROVIDERS: PCP Internal Medicine; Referring Provider Urology; Visit Provider Urology
DX: N39.0 Urinary tract infection, site not specified (principal); N20.0 Calculus of kidney; R31.29 Other microscopic hematuria; N13.30 Unspecified hydronephrosis; K42.9 Umbilical hernia without obstruction or gangrene
CPT/HCPCS: 74178; Q9967

== ENCOUNTER → 2023-10-21 09:29 | Outpatient (CLI) | payer BC, SELFPAY ==
--- NOTE | 2023-10-21 09:30 | DI.RAD.S_ITS ---
PROCEDURE: XR KUB INDICATIONS: Kidney stones TECHNIQUE: One view of the abdomen acquired. COMPARISON: None. FINDINGS: Surgical changes and devices: None. Bowel: Bowel gas pattern is normal. Soft tissues: No suspicious abdominal calcifications. Visualized solid organ contours appear normal in size. Punctate calcifications project over the lower pole of the left kidney. Bones: No suspicious bony lesions. IMPRESSION: Punctate calcifications project over the lower pole of the left kidney. Dictated by: Joseph Souza M.D. on 10/21/2023 at 11:21 Approved by: Joseph Souza M.D. on 10/21/2023 at 11:25
== END ==
PROVIDERS: PCP Internal Medicine; Referring Provider Urology; Visit Provider Urology
DX: N20.0 Calculus of kidney (principal)
CPT/HCPCS: 74018

== ENCOUNTER → 2024-04-26 10:23 | Outpatient (CLI) | payer BC, SELFPAY ==
--- NOTE | 2024-04-26 10:26 | DI.RAD.S_ITS ---
PROCEDURE: XR KUB INDICATIONS: Follow-up kidney stone TECHNIQUE: One view of the abdomen acquired. COMPARISON: [facility], CR, XR KUB, 10/21/2023, 9:43. FINDINGS: Surgical changes and devices: None. Bowel: Bowel gas pattern is normal. Soft tissues: Increased number of calcification again project over the left kidney. Visualized solid organ contours appear normal in size. Bones: No suspicious bony lesions. IMPRESSION: Interval increase number of calcifications projecting over the left kidney Dictated by: Saleem Bill M.D. on 04/26/2024 at 14:06 Approved by: Saleem Bill M.D. on 04/26/2024 at 15:00
== END ==
PROVIDERS: PCP Internal Medicine; Referring Provider Urology; Visit Provider Urology
DX: N28.89 Other specified disorders of kidney and ureter (principal); N20.0 Calculus of kidney; Z87.442 Personal history of urinary calculi
CPT/HCPCS: 74018

== ENCOUNTER → 2024-04-28 09:52 | Outpatient (CLI) | payer BC, SELFPAY | PROVIDERS: PCP Internal Medicine; Visit Provider Urology | DX: Z87.440 Personal history of urinary (tract) infections (principal) | CPT/HCPCS: 81002; 87086 ==

== ENCOUNTER → 2024-05-07 09:50 | Outpatient (CLI) | payer BC, SELFPAY ==
--- NOTE | 2024-05-07 09:51 | DI.CT.S_ITS ---
PROCEDURE: CT KIDNEY URETER BLADDER (KUB) INDICATIONS: FOLLOW UP KIDNEY STONES TECHNIQUE: Axial sections were acquired from the lung bases to the pubic symphysis. Coronal and sagittal reformats were performed. For radiation dose reduction, the following was used: automated exposure control, adjustment of mA and/or kV according to patient size. COMPARISON: [facility], CR, XR KUB, 04/26/2024, 10:26. FINDINGS: Image quality: Diagnostic. Lower Chest: No significant findings. URINARY: Right Kidney: Right kidney is normal in size. Several small renal calculi, 2 to mm in diameter, are present in the collecting system without obstruction. No mass lesions. Right Ureter: No hydroureter. No calculi in the course of the ureter. Left Kidney: The left kidney is normal in size. Multiple small renal calculi, 2-3 mm in size are present in the renal collecting system. No obstruction. No mass lesions. Left Ureter: No hydroureter. No calculi in the course of the ureter. Bladder: Normal wall thickness. No stones. ABDOMEN: Liver: No contour-deforming solid mass. Gallbladder: No radiopaque gallstones or wall thickening. Biliary ducts: No biliary dilation. Pancreas: No ductal dilation. Spleen: Size is within normal limits. Adrenal Glands: No adrenal nodules. Stomach and Bowel: Normal colonic caliber, without significant wall thickening. No bowel obstruction. No inflammatory changes. Peritoneum: No abnormal intraperitoneal fluid. No free air. Ventral Wall: No hernia. Abdominal Nodes: No enlarged retroperitoneal or mesenteric lymph nodes. Vessels: Aorta and inferior vena cava are normal in size. PELVIS: Pelvic Organs: Unremarkable. Pelvic Nodes: Unremarkable. Miscellaneous: No inguinal hernias are seen. Bones: Unremarkable. IMPRESSION: Bilateral non-obstructing renal calculi. Dictated by: Kiko Lyons M.D. on 05/07/2024 at 11:57 Approved by: Kiko Lyons M.D. on 05/07/2024 at 12:07
== END ==
PROVIDERS: PCP Internal Medicine; Referring Provider Urology; Visit Provider Urology
DX: N20.0 Calculus of kidney (principal)
CPT/HCPCS: 74176

== ENCOUNTER → 2024-11-09 10:58 | Outpatient (CLI) | payer BC, SELFPAY ==
--- NOTE | 2024-11-09 11:00 | DI.RAD.S_ITS ---
PROCEDURE: XR KUB INDICATIONS: History of kidney stones TECHNIQUE: One view of the abdomen acquired. COMPARISON: [facility], CT, CT KIDNEY URETER BLADDER (KUB), 05/07/2024, 10:01[facility], CR, XR KUB, 04/26/2024, 10:26. [facility], CR, XR KUB, 10/21/2023, 9:43. FINDINGS: Surgical changes and devices: None. Bowel: Bowel gas pattern is normal. Soft tissues: Punctate stones project over the left kidney, similar to comparison. Bones: No suspicious bony lesions. IMPRESSION: Similar stones projecting over the left kidney. Dictated by: Joseph Souza M.D. on 11/09/2024 at 16:26 Approved by: Joseph Souza M.D. on 11/09/2024 at 16:27
== END ==
LOC: RAD 10:59
PROVIDERS: PCP Internal Medicine; Referring Provider Urology; Visit Provider Urology
DX: R31.21 Asymptomatic microscopic hematuria (principal); Z87.440 Personal history of urinary (tract) infections; Z87.442 Personal history of urinary calculi
CPT/HCPCS: 74018

== ENCOUNTER → 2025-09-07 09:38 | Outpatient (CLI) | payer BC, SELFPAY ==
--- NOTE | 2025-09-07 09:39 | DI.MG.S_ITS ---
MM screening mammo BI: 09/07/2025. BI-RADS: 1 CLINICAL: 45-year old female for bilateral screening mammogram. Tyrer-Cuzick lifetime risk of 8.9%. No personal or first-degree family history of breast cancer. The patient had a prior left breast biopsy. PRIOR EXAMS: None. This is a baseline mammogram. MAMMOGRAPHY TECHNIQUE: 2D and 3D (tomosynthesis) digital mammographic views obtained, with additional images as needed for full coverage. Current study was also evaluated with a Computer Aided Detection (CAD) system. DENSITY C. The breasts are heterogeneously dense, which may obscure small masses. MAMMOGRAPHY FINDINGS Bilateral: No suspicious mass, asymmetry, microcalcification, or other abnormality seen. IMPRESSION: * No evidence of malignancy. RECOMMENDATIONS Bilateral * Annual screening mammography. OVERALL ASSESSMENT CATEGORY BI-RADS-1: Negative. The [employer] recommends annual screening mammography beginning at age 40 for women with average risk of breast cancer. ELECTRONICALLY SIGNED: Malka Beavers M.D. on 09/07/2025 at 02:47:53 PM PT Interpreting Station ID: [id number]
== END ==
LOC: MAMMO 09:39
PROVIDERS: PCP Registered Nurse; Referring Provider Registered Nurse; Visit Provider Registered Nurse
DX: Z12.31 Encounter for screening mammogram for malignant neoplasm of breast (principal); R92.333 Mammographic heterogeneous density, bilateral breasts
CPT/HCPCS: 77063; 77067